=== PATIENT | female | born 2000 | race Caucasian/White ===

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

== ENCOUNTER 2020-09-07 16:30 | Emergency (ER) | payer MEDICAID ==
[~2020-09-07] VITALS: Ht 172.7 cm; Wt 131.8 kg
[2020-09-07 17:37] VITALS: BP 134/75; PULSE 86; TEMP 98
== END 2020-09-07 17:37 | disposition home or self-care (01) ==
LOC: COL.ER 16:30
DX: S61.012A Laceration without foreign body of left thumb without damage to nail, initial encounter (principal); W26.8XXA Contact with other sharp object(s), not elsewhere classified, initial encounter; Y92.89 Other specified places as the place of occurrence of the external cause

== ENCOUNTER 2020-09-18 21:14 | Emergency (ER) | payer MEDICAID ==
[~2020-09-18] VITALS: Ht 172.7 cm; Wt 135.8 kg
[2020-09-18 21:19] VITALS: TEMP 98.5
[2020-09-18 21:50] VITALS: BP 122/70; PULSE 72
== END 2020-09-18 21:50 | disposition home or self-care (01) ==
LOC: COL.ER 21:14
DX: S60.221A Contusion of right hand, initial encounter (principal); S70.01XA Contusion of right hip, initial encounter; W01.198A Fall on same level from slipping, tripping and stumbling with subsequent striking against other object, initial encounter; Y93.01 Activity, walking, marching and hiking

== ENCOUNTER 2022-01-03 20:25 | Emergency (ER) | payer MEDICAID ==
[~2022-01-03] VITALS: Ht 172.7 cm; Wt 109.1 kg
[2022-01-03 21:30] LABS: COLLECTION METHOD CLEAN CATCH
[2022-01-03 21:33] LABS: BASO # 0.1 K/mm3 (0.0-0.2); BASO % 0.4 % (0.0-2.0); EOS # 0.2 K/mm3 (0.0-0.7); EOS % 1.3 % (0.0-4.0); GRAN # 9.8 K/mm3 (1.4-6.5); HEMATOCRIT 38.3 % (37.0-47.0); LYMPH # 4.5 K/mm3 (1.2-3.4); LYMPH % 28.3 % (20.0-51.0); MEAN CELL VOLUME 82 fl (80.0-100.0); MEAN CORPUSCULAR HEMOGLOBIN 28 pg (27-31); MEAN CORPUSCULAR HGB CONC 34 g/dl (33.0-37.0); MEAN PLATELET VOLUME 8.8 fl (7.4-10.4); MONO # 1.2 K/mm3 (0.1-0.6); MONO % 7.3 % (1.7-9.3); PLATELET COUNT 383 K/mm3 (130-400); RED BLOOD COUNT 4.68 M/mm3 (4.10-5.30); REDCELL DISTRIBUTION WIDTH-CV 13.8 % (11.5-14.5)
[2022-01-03 21:41] LABS: MUCOUS Present (NOT PRESENT); PH 5 (5-8); URINE APPEARANCE Hazy (CLEAR/HAZY); URINE BACTERIA None Seen /hpf (NONE SEEN); URINE BILIRUBIN Negative (NEGATIVE); URINE BLOOD Negative (NEGATIVE); URINE COLOR Yellow (YELLOW); URINE GLUCOSE Negative (NEGATIVE); URINE KETONE Negative (NEGATIVE); URINE LEUKOCYTE ESTERASE Trace (NEGATIVE); URINE NITRATE Negative (NEGATIVE); URINE PROTEIN(semi-quant) Negative (NEGATIVE); URINE RBC 0-2 /hpf (0-2)
[2022-01-03 21:55] LABS: ALBUMIN 3.6 gm/dL (3.5-5.0); BILIRUBIN,TOTAL 0.2 mg/dL (0.2-1.2); C-REACTIVE PROTEIN 2.66 mg/dL (0.00-0.50); CREATININE, serum 0.83 mg/dL (0.57-1.11); TOTAL PROTEIN 6.7 gm/dL (6.2-8.1)
[2022-01-03 22:44] VITALS: TEMP 98.3
[2022-01-04 00:23] VITALS: BP 125/77; PULSE 82
== END 2022-01-04 00:40 | disposition home or self-care (01) ==
LOC: COL.ER 20:25
PROVIDERS: Nurse Practitioner
DX: R10.13 Epigastric pain (principal); D72.829 Elevated white blood cell count, unspecified; M54.9 Dorsalgia, unspecified; Z32.02 Encounter for pregnancy test, result negative
CPT/HCPCS: Q9967